=== PATIENT | male | born 1990 | race African-American/Black ===

== ENCOUNTER 2020-02-15 17:45 | Emergency (ER) | payer MEDICAID ==
[~2020-02-15] VITALS: Ht 180.3 cm; Wt 59.0 kg
[2020-02-15] MEDS ORDERED: SODIUM CHLORIDE 0.9% 1,000 ML IV ONE (18:19)
[2020-02-15] MEDS ORDERED: ACETAMINOPHEN WITH CODEINE 300/30MG TABLET PO STA (18:19)
[2020-02-15 18:27] LABS: EOSINOPHILS % 2.1 % (0.0-5.0); HEMOGLOBIN. 13.2 g/dL (14.0-18.0); LYMPHOCYTES % 31.8 % (20.0-50.0); MEAN CORPUSCULAR HEMOGLOBIN 32.2 pg (28.0-32.0); MEAN CORPUSCULAR VOLUME 92.5 fL (80.0-94.0); MEAN PLATELET VOLUME 7.9 fl (7.4-10.4); MONOCYTES % 11.6 % (2.0-8.0); NEUTROPHILS % 53.5 % (40.0-76.0); PLATELET 215 x1000/uL (130-400); RED BLOOD CELL COUNT 4.11 mill/uL (4.7-6.1); RED CELL DISTRIBUTION WIDTH 14.2 % (11.6-14.6)
[2020-02-15 18:35] LABS: CHLORIDE 112 mEq/L (98-107)
[2020-02-15] MEDS ORDERED: MORPHINE SULFATE 4 MG/ML CPJ (NOT FOR IM USE) IV STA (21:40)
[2020-02-15] MEDS ORDERED: ONDANSETRON HCL 4MG/2ML INJ IV STA (21:40)
[2020-02-15 22:59] VITALS: BP 119/71
== END 2020-02-15 23:02 | disposition home or self-care (01) ==
LOC: ER 17:45
DX: S09.8XXA Other specified injuries of head, initial encounter (principal); S06.5X9A Traumatic subdural hemorrhage with loss of consciousness of unspecified duration, initial encounter; W22.8XXA Striking against or struck by other objects, initial encounter; Y93.89 Activity, other specified; Y92.89 Other specified places as the place of occurrence of the external cause; Y99.8 Other external cause status; R55 Syncope and collapse
CPT/HCPCS: 36415; 70450; 80053; 85025; 93005; 96374; 96375; 99285; J2270; J2405; J7030

== ENCOUNTER 2024-08-09 12:06 | Emergency (ER) | payer MEDICAID, OTHER ==
[~2024-08-09] VITALS: Ht 175.3 cm; Wt 75.0 kg
[2024-08-09 12:08] VITALS: O2SAT 98
[2024-08-09 12:53] LABS: BASOPHILS % 0.5 % (0.0-2.0); EOSINOPHILS % 1.3 % (0.0-5.0); HEMATOCRIT. 38.9 % (42.0-52.0); HEMOGLOBIN. 12.4 g/dL (14.0-18.0); LYMPHOCYTES % 22.5 % (20.0-50.0); MEAN CORPUSCULAR HEMOGLOBIN 30.1 pg (28.0-32.0); MEAN CORPUSCULAR VOLUME 94.3 fL (80.0-94.0); MEAN PLATELET VOLUME 8.7 fl (7.4-10.4); MONOCYTES % 7.5 % (2.0-8.0); NEUTROPHILS % 68.2 % (40.0-76.0); PLATELET 277 x1000/uL (130-400); RED BLOOD CELL COUNT 4.13 mill/uL (4.7-6.1); RED CELL DISTRIBUTION WIDTH 14.9 % (11.6-14.6); WHITE BLOOD COUNT 3.7 x1000/uL (4.5-11.0)
[2024-08-09 12:59] LABS: CHLORIDE 111 mEq/L (98-107); SODIUM 142 mEq/L (136-145)
[2024-08-09 13:00] LABS: CALCIUM 9.2 mg/dL (8.7-10.4); CARBON DIOXIDE 24 mEq/L (21-32)
[2024-08-09 13:05] LABS: CREATININE 1.3 mg/dL (0.6-1.3); GLUCOSE 87 mg/dL (70-105); UREA NITROGEN BLOOD 10 mg/dL (9-23)
[2024-08-09 13:07] LABS: ALANINE AMINOTRANSFERASE 11 IU/L (10-49); ALBUMIN 4.3 g/dL (3.2-4.8); ASPARTATE AMINOTRANSFERASE 24 IU/L (<34); BILIRUBIN DIRECT 0.3 mg/dL (<=3.0)
[2024-08-09 13:08] LABS: BILIRUBIN TOTAL 0.9 mg/dL (0.1-1.0)
[2024-08-09] MEDS: KETOROLAC 30MG/ML VIAL IV STA (13:11)
[2024-08-09] MEDS: ONDANSETRON HCL 4MG/2ML INJ IV STA (13:11)
[2024-08-09] MEDS: SODIUM CHLORIDE 0.9% 1,000 ML IV ONE (13:11)
[2024-08-09 13:25] LABS: PROTEIN TOTAL 6.8 g/dL (6.0-8.3)
[2024-08-09] MEDS ORDERED: IOHEXOL-300 100 ML BOTTLE ONE (15:18)
[2024-08-09] MEDS ORDERED: IBUP-2028 MT (16:11)
[2024-08-09 16:29] VITALS: BP 121/70; PULSE 44; RESP 20; O2SAT 100
== END 2024-08-09 16:38 | disposition home or self-care (01) ==
LOC: ER 12:10
DX: R10.814 Left lower quadrant abdominal tenderness (principal); M54.50 Low back pain, unspecified; M25.552 Pain in left hip; M79.602 Pain in left arm
CPT/HCPCS: 99285; 72128; 96374; 96375; 80076; 80048; 83690; 85025; 36415; 73552; 72131; 74177; Q9967; J1885; J2405; J7030